=== PATIENT | male | born 1970 | race Caucasian/White ===

== ENCOUNTER 2018-05-13 14:50 | Emergency (ER) | payer OTHER ==
[~2018-05-13] VITALS: Ht 165.1 cm; Wt 63.5 kg
[~2018-05-13 14:50] MED LIST: AMOXICILLIN875 MG PO; NAPROSYN500 MG PO; NOHOMEMEDICATIONS
[2018-05-13 15:27] LABS: ABSOLUTE NEUTROPHILS 2.6 thou/uL (1.4-8.2); EOSINOPHILS 2.4 % (0.0-3.0); HEMATOCRIT 43.8 % (42.0-52.0); HEMOGLOBIN 15.3 gm/dL (14.0-18.0); LYMPHOCYTES 36.7 % (24.0-44.0); MCH 29.7 pg (26.0-34.0); MCV 84.7 fL (80.0-100.0); MONOCYTES 11.3 % (1.0-8.0); PLATELET COUNT 208 thou/uL (150-400); POLYS 48.6 % (36.0-66.0); RBC 5.17 mil/uL (4.50-6.00); RDW 13.2 % (10.5-14.5); WBC 5.4 thou/uL (4.0-11.0)
[2018-05-13 15:36] LABS: ANION GAP 6 mmol/L (7-16); BUN 27 mg/dL (7-18); CHLORIDE 102 mmol/L (98-107); CO2 29 mmol/L (21-32); CREATININE 1.1 mg/dL (0.7-1.3); GLUCOSE 131 mg/dL (74-106); POTASSIUM 4.2 mmol/L (3.5-5.1); SODIUM 137 mmol/L (136-145)
[2018-05-13 15:45] LABS: TROPONIN-I <0.06 ng/mL (<0.06)
--- NOTE | 2018-05-13 16:21 | EKG ---
[address] [place] [address] [place] [address] ELECTROCARDIOGRAM REPORT Name: ZAIRE MARION Room [facility]: [id number] Admission: 05/13/18 Attend Phys: Discharge: Date of : 66 Report #: [id number] THIS REPORT FOR: //name// [facility] ED Test Date: 2018-05-13 Test Time: 15:03:59 Pat Name: ZAIRE MARION Department: Room: Gender: M Patrol Driver: : [id number] Requested By: Barrie Rutherford Order Number: [id number] MD: Charanjit Yao Measurements Intervals [place] Rate: 70 P: 35 NH: 180 QRS: 25 QRSD: 88 T: 27 QT: 390 QTc: 421 Interpretive Statements Sinus rhythm Abnormal R-wave progression, early transition Compared to ECG 01/04/2014 18:05:36 No significant change was found Electronically Signed On 05-13-2018 16:20:53 HOSPITAL STAFF PHARMACIST by Charanjit Yao [email or web address] <ELECTRONICALLY SIGNED> By: Charanjit Yao MD, [facility] 05/13/18 1620 1503 1503 Charanjit Yao MD, FACC /EPI
[2018-05-13 17:18] VITALS: BP 130/84
== END 2018-05-13 17:20 | disposition home or self-care (01) ==
LOC: ER 14:50
PROVIDERS: Nurse Practitioner
DX: R55 Syncope and collapse (principal)

== ENCOUNTER 2018-11-20 07:32 | Emergency (ER) | payer OTHER ==
[~2018-11-20] VITALS: Ht 165.1 cm; Wt 65.8 kg
[2018-11-20 09:57] LABS: URINE BILIRUBIN NEGATIVE (Negative); URINE BLOOD NEGATIVE (Negative); URINE CLARITY CLEAR; URINE COLOR YELLOW; URINE GLUCOSE-RANDOM* NEGATIVE (Negative); URINE KETONES NEGATIVE (Negative); URINE LEUKOCYTES-REFLEX NEGATIVE (Negative); URINE NITRITE-REFLEX NEGATIVE (Negative); URINE PROTEIN (DIPSTICK) NEGATIVE (Negative); URINE UROBILINOGEN 0.2 E.U./dl (0.2-1.0)
[2018-11-20] MEDS ORDERED: MOBIC15 MG PO (10:25)
[2018-11-20 10:29] VITALS: BP 119/62
== END 2018-11-20 10:38 | disposition home or self-care (01) ==
LOC: ER 07:32
PROVIDERS: Emergency Medicine
DX: S39.011A Strain of muscle, fascia and tendon of abdomen, initial encounter (principal); V43.92XA Unspecified car occupant injured in collision with other type car in traffic accident, initial encounter; Y93.89 Activity, other specified; Y92.89 Other specified places as the place of occurrence of the external cause; Y99.8 Other external cause status